=== PATIENT | male | born 1990 | race Caucasian/White ===

== ENCOUNTER 2022-02-10 19:02 | Emergency (ER) | payer OTHER ==
[~2022-02-10] VITALS: Ht 175.3 cm; Wt 77.1 kg
[2022-02-10 19:20] VITALS: BP_SYST 121
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
--- NOTE | 2022-02-10 19:35 | NUR ---
PATIENT PLACED INTO [facility] BED 1.
--- NOTE | 2022-02-10 19:50 | NUR ---
DR. CRUZ AT BEDSIDE.
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
[2022-02-10] MEDS ORDERED: ACETAMINOPHEN 500 MG TABLET PO ONE (20:15)
[2022-02-10] MEDS ORDERED: KETOROLAC TROMETHAMINE 30 MG VIAL IM ONE (20:15)
[2022-02-10] MEDS ORDERED: BACITRACIN 1 GM OINT TP ONE (20:15)
--- NOTE | 2022-02-10 20:26 | NUR ---
WOUND CARE PROVIDED AND ABX OINTMENT APPLIED.
[2022-02-10] MEDS ORDERED: IBUP-1969 PO (21:03)
[2022-02-10] MEDS ORDERED: BACI15OI13 TP (21:03)
[2022-02-10 22:40] VITALS: BP_SYST 118
== END 2022-02-10 20:40 | disposition home or self-care (01) ==
LOC: SED 19:02
DX: S80.11XA Contusion of right lower leg, initial encounter (principal); S80.212A Abrasion, left knee, initial encounter; V23.4XXA Motorcycle driver injured in collision with car, pick-up truck or van in traffic accident, initial encounter; Y93.89 Activity, other specified; Y92.89 Other specified places as the place of occurrence of the external cause; Y99.8 Other external cause status; Z79.899 Other long term (current) drug therapy
CPT/HCPCS: 99283; 73560; 96372; J1885